=== PATIENT | female | born 1955 | race Caucasian/White ===

== ENCOUNTER 2022-12-06 13:27 | Emergency (ER) | payer BC, OTHER ==
[~2022-12-06] VITALS: Ht 167.6 cm; Wt 57.2 kg
[2022-12-06 13:30] VITALS: BP_SYST 139; PULSE 87; RESP 17; TEMP 97.4; O2SAT 97
[2022-12-06] MEDS ORDERED: DIPHTH,PERTUSS(ACELL),TET VAC 0.5 ML VIAL (Tdap) I.M. ONE (14:00)
[2022-12-06] MEDS ORDERED: LIDOCAINE 1% 10 MG/ML, 20 ML MDV INJ ONE (14:00)
[2022-12-06] MEDS ORDERED: BACITRACIN 1 GM OINT TP ONE (14:21)
[2022-12-06 14:45] VITALS: BP_SYST 139; PULSE 87; RESP 17; TEMP 97.4; O2SAT 97
== END 2022-12-06 14:30 | disposition home or self-care (01) ==
LOC: SED 13:27
DX: S61.211A Laceration without foreign body of left index finger without damage to nail, initial encounter (principal); Z88.8 Allergy status to other drugs, medicaments and biological substances; Z79.899 Other long term (current) drug therapy; W29.3XXA Contact with powered garden and outdoor hand tools and machinery, initial encounter; Y93.89 Activity, other specified; Y92.89 Other specified places as the place of occurrence of the external cause; Y99.8 Other external cause status
CPT/HCPCS: 99283; 90715; 90471; 12001; J2001